=== PATIENT | female | born 1980 | race American Indian/Alaskan Native ===

== ENCOUNTER 2019-04-12 22:54 | Emergency (ER) | payer OTHER ==
[2019-04-12 22:59] VITALS: BP 157/99
== END 2019-04-13 01:45 | disposition left against medical advice (07) ==
LOC: ED 22:54
DX: R03.0 Elevated blood-pressure reading, without diagnosis of hypertension (principal); Z53.21 Procedure and treatment not carried out due to patient leaving prior to being seen by health care provider